=== PATIENT | female | born 1995 | race Two or more races ===

== ENCOUNTER 2025-01-06 11:46 | Emergency (ER) | payer OTHER, SELFPAY ==
[2025-01-06 11:48] VITALS: BP 148/83
--- NOTE | 2025-01-06 13:08 | ED.GENMED ---
History of Present Illness
General
Chief Complaint: Ear Problem
Source: patient
Time Seen by Provider: 01/06/25 12:30
History of Present Illness
History of Present Illness:
29-year-old female presents to the emergency room complaining of right ear pain, headache. She has been experiencing this for approximately 3 weeks to a month. She has been evaluated by other providers of prescribed antibiotics. Has taken 2 full
courses of antibiotics for cefuroxime and second Levaquin. She just completed the course of Levaquin. Of note she also tested positive for COVID yesterday. She does not believe her hearing has diminished. She denies any drainage from the ear.
She did have frequent ear infections as a child and did have myringotomy tubes placed. No fever.
Phy Exam
Physical Exam
Physical Exam:
General: Awake, Alert, Oriented X3. No acute distress.
Vitals: unremarkable
Head: Atraumatic, no pain to percussion over the mastoid.
Ears: Auricles normal appearing bilaterally, no inflammation or erythema noted of the eustachian tube on either side. Right tympanic membrane has significant white discoloration the superior posterior and inferior regions. The ossicles structures
are somewhat visible but the dependent membrane in this area appears somewhat erythematous. Left panic membrane has some whitish discoloration as well to a lesser extent. There is no pain with manipulation of the auricle bilaterally.
Eyes: Pupils equal, EOMI
Throat: Airway intact, no exudates
Neck: Trachea midline, no adenopathy
Neuro: Nonfocal
Skin: Warm, dry, no rash
Extremities: pulses equal b/l, no edema
Course
Vital Signs
Initial and Last Documented VS:
Initial Vital Signs
Temp Pulse Resp BP Pulse Ox
98.2 F 120 16 148/83 96
01/06/25 11:48 01/06/25 11:48 01/06/25 11:48 01/06/25 11:48 01/06/25 11:48
Last Documented Vital Signs
Temp Pulse Resp BP Pulse Ox
98.2 F 120 16 148/83 96
01/06/25 11:48 01/06/25 11:48 01/06/25 11:48 01/06/25 11:48 01/06/25 11:48
MDM/Problems Addressed
Differential Diagnosis Includes:
Acute otitis media, chronic otitis media, cholesteatoma, scarring of the tympanic membrane
MDM/Problems Addressed:
I do not believe additional antibiotics with benefit as the patient is taking 2 full courses of antibiotics. I suspect her ear pain and other symptoms are related to eustachian tube dysfunction or other anatomical issue. Will start with Flonase
but I think she should follow-up with an clay transporter for further evaluation. Contact information provided for Dr. Taveras
*Pulse Oximetry
SaO2: 96
Oxygen Mode of Delivery: Room air
Patient hypoxic: no
*Critical Care Note
Total Time (30-74mins, 75-104mins- exclusive of procedures): Not Applicable
ED Attending Note
-
Portions of this chart may have been created with voice recognition software.� Occasional wrong word or��sound alike� substitutions may have occurred due to the inherent limitations of voice recognition software.
Discharge Plan
Departure
Patient Disposition: Home (Routine Discharge)
Date of Disposition: 01/06/25
Time of Disposition: 13:09
Patient with high blood pressure during this ER visit?: No
Condition: Good
Discharge Problem:
COVID, Ear pain, right
Instructions: COVID-19 in adults (DC), Ear pain - ED (DC), BLOOD PRESSURE
Referrals:
Glendy Mason DO [Family Provider, Family Practice]
Jhonatan Ramos MD [Active, ENT]
Activity Restrictions/Additional Instructions:
The ear discomfort and headache you are now experiencing very well could be at least partially related to COVID. Given you have taken 2 courses of broad-spectrum antibiotics I do not believe additional antibiotics will be useful. The symptoms you
are having may be related to poor drainage of your eustachian tubes. I would recommend using Flonase which may help with eustachian tube drainage. Your tympanic membranes have white discoloration on both sides but more so on the right. This could
be due to your ear tubes surgery in the past but I do think you should see an senior research analyst, Dr. Taveras, to further evaluate this.
Flonase can be purchased [id number] and does not require prescription
Interventions
Interventions:
*Risk Screen - Suicide Last Done: 01/06/25 11:48
*Neglect/Abuse Screening Last Done: 01/06/25 11:48
Discharge Date and Time
Print Language: ZAMBIAN
== END 2025-01-06 14:33 | disposition home or self-care (01) ==
LOC: EMR 11:46
PROVIDERS: EMERGENCY PHYSICIAN Emergency Medicine; FAMILY PHYSICIAN Family Medicine
DX: U07.1 COVID-19 (principal); H92.01 Otalgia, right ear
CPT/HCPCS: 99282